=== PATIENT | female | born 1975 | race Caucasian/White ===

== ENCOUNTER 2020-08-03 07:43 | Outpatient (CLI) | payer OTHER, SELFPAY ==
--- NOTE | ~2020-08-03 | MR_ITS ---
EXAMINATION: MR brain/brain stem wo/w con EXAM DATE: 08/03/2020 08:47 INDICATION: Frontal headache, progressing. Symptoms one month. TECHNIQUE: Magnetic resonance imaging (MRI) of the brain/brain stem obtained without contrast. Sagit kelly T1, axial diffusion, gradient echo (T2*), T1, T2, FLAIR sequences obtained. Patient was then inj ected with 10 cc intravenous Multihance contrast. Axial and coronal postcontrast T1 weighted sequence s obtained. There is no prior study for comparison. FINDINGS: There are no areas of restricted diffusion to suggest acute infarction. There is no acute hemorrhage seen on the T2*, a hemosiderin sensitive sequence. No intraparenchymal brain mass. The ve ntricles are normal in size. There are no extra-axial collections. Flow voids are seen in the cereb ral arteries on the T2-weighted sequences consistent with their expected patency. The orbits are unr emarkable. Soft tissue is unremarkable. There are no areas of abnormal enhancement on the postcont rast images. IMPRESSION: Unremarkable brain MRI examination. Reviewed, dictated and finalized at location A. [employer]
== END 2020-08-03 07:44 | disposition home or self-care (01) ==
LOC: ANHIMG 07:51
PROVIDERS: PCP Internal Medicine; Visit Provider Nurse Practitioner
DX: R51.9 Headache, unspecified (principal)
CPT/HCPCS: 70553; A9577

== ENCOUNTER → 2021-01-04 09:53 | Outpatient (CLI) | payer OTHER, SELFPAY ==
[2021-01-05 14:27] LABS: SARS-CoV-2 RNA PCR Negative
== END ==
PROVIDERS: PCP Internal Medicine; Visit Provider Nurse Practitioner
DX: R51.9 Headache, unspecified (principal); Z20.822 Contact with and (suspected) exposure to COVID-19
CPT/HCPCS: C9803; U0003; U0005

== ENCOUNTER 2021-11-18 15:41 | Outpatient (CLI) | payer OTHER, SELFPAY ==
--- NOTE | ~2021-11-18 | MM_ITS ---
EXAMINATION: MM screening [facility] BI w nadine HISTORY: Screening mammogram, family history of breast cancer in her sister. TECHNIQUE: Craniocaudal and mediolateral oblique 3-D tomosynthesis images were obtained and synthetic 2-D images were generated. CAD analysis was submitted and interpreted. COMPARISON: 12/30/2015, 05/04/2012 BREAST PARENCHYMAL COMPOSITION: The breasts are extremely dense, which lowers the sensitivity of mamm ography. FINDINGS: There is no suspicious mass, calcification, or architectural distortion to suggest malignan cy in either breast. There has been no suspicious interval change. IMPRESSION: 1. No mammographic evidence of malignancy. 2. Recommend routine screening mammography in one year. BI-RADS Category 1: Negative Reviewed, dictated and finalized at location A.
== END 2021-11-18 15:42 | disposition home or self-care (01) ==
PROVIDERS: PCP Internal Medicine; Visit Provider Nurse Practitioner
DX: Z12.31 Encounter for screening mammogram for malignant neoplasm of breast (principal)
CPT/HCPCS: 77063; 77067

== ENCOUNTER 2023-06-05 09:47 | Outpatient (CLI) | payer OTHER, SELFPAY ==
--- NOTE | ~2023-06-05 | XR_ITS ---
XR chest 2V DATE: 06/05/2023 10:00 INDICATION: Contact and suspected exposure to an unspecified substance TECHNIQUE: PA and lateral views COMPARISON: None FINDINGS: Normal heart size. No hilar or mediastinal enlargement. Bilateral hyperinflation. No pulmon tere infiltrate or consolidation, pleural effusion or pulmonary vascular congestion or pneumothorax. IMPRESSION: Bilateral hyperinflation; no active cardiopulmonary disease Reviewed, dictated and finalized at location B.
== END 2023-06-05 09:48 | disposition home or self-care (01) ==
PROVIDERS: PCP Internal Medicine; Visit Provider Nurse Practitioner
DX: Z77.098 Contact with and (suspected) exposure to other hazardous, chiefly nonmedicinal, chemicals (principal); R91.8 Other nonspecific abnormal finding of lung field
CPT/HCPCS: 71046

== ENCOUNTER 2023-06-08 13:54 | Emergency (ER) | payer OTHER, SELFPAY ==
--- NOTE | ~2023-06-08 | XR_ITS ---
Clinical Indication: Lower extremity weakness PA and lateral views of the chest: Comparison: 06/05/2023 Findings: The lungs are clear, without evidence of focal consolidation or pleural effusion. Cardiome diastinal silhouette is within normal limits. Bones and soft tissues are unremarkable. Impression: Normal chest. Reviewed, dictated and finalized at [facility]. Impression: Normal chest.
[2023-06-08 14:01] VITALS: BP 178/77; PULSE 107; RESP 18; TEMP 36.3; O2SAT 100
--- NOTE | 2023-06-08 14:10 | ECG_ITS ---
Measurements Intervals Ethel Rate: 80 P: 51 WI: 128 QRS: 51 QRSD: 90 T: 21 QT: 355 QTc: 411 Interpretive Statements SINUS RHYTHM NO PREVIOUS ECG AVAILABLE FOR COMPARISON Electronically Signed On 06-09-2023 14:15:47 CDT by Jose E Romero M.D.
[2023-06-08 14:39] LABS: Basophils Absolute Auto 0.1 K/mm3 (0.0-0.1); Basophils Percent Auto 0.9 % (0.2-1.2); Eosinophils Absolute Auto 0.1 K/mm3 (0-0.3); Eosinophils Percent Auto 1.3 % (0-4.4); Hematocrit 40.2 % (37.0-47.0); Hemoglobin 13.6 g/dL (12.0-15.0); Immature Granulocyte Absolute 0.02 K/mm3 (0.00-0.031); Immature Granulocyte Percent A 0.3 % (0-0.5); Lymphocytes Absolute Auto 1.22 K/mm3 (0.9-3.2); Lymphocytes Percent Auto 19.1 % (18.3-44.2); Mean Corpuscular HGB Conc 33.8 g/dl (32-36); Mean Corpuscular Hemoglobin 31.8 pg (26-34); Mean Corpuscular Volume 93.9 fl (80-100); Mean Platelet Volume 10.8 fl (7.4-10.4); Monocytes Absolute Auto 0.4 K/mm3 (0.1-0.6); Monocytes Percent Auto 5.5 % (2.6-8.5); Neutrophils Absolute Auto 4.7 K/mm3 (1.3-6.7); Neutrophils Percent Auto 72.9 % (45.5-73.1); Platelet Count Result 249 k/mm3 (150-375); Red Blood Count 4.28 M/mm3 (4.2-5.4); Red Cell Distribution Width 12.4 % (11.5-14.5); White Blood Count 6.4 K/mm3 (4.5-10.0)
[2023-06-08 14:41] LABS: Alanine Aminotransferase 16 U/L (6-35); Albumin Level 4.5 g/dL (3.5-5.1); Alkaline Phosphatase 62 U/L (38-126); Anion Gap 9 mmol/L (8-16); Aspartate Amino Transferase 26 U/L (14-36); Bilirubin,Total 1.5 mg/dL (0.2-1.3); Blood Urea Nitrogen 9 mg/dL (7-17); Calcium 8.9 mg/dL (8.4-10.2); Carbon Dioxide 25 mmol/L (22-30); Chloride 103 mmol/L (98-107); Estimated CRCL calculation 65 ml/min; Estimated Glomerular Filt Rate > 60; Glucose 111 mg/dL (65-110); Potassium 3.9 mmol/L (3.4-5.0); Sodium 137 mmol/L (137-145)
[2023-06-08 15:07] LABS: Influenza A QL RT-PCR Negative (Negative); Influenza B QL RT-PCR Negative (Negative); SARS-CoV-2 RNA PCR Negative (Negative)
[2023-06-08 15:45] LABS: Appearance Urine Clear (Clear); Bilirubin Urine Negative (Negative); Blood Urine Negative (Negative); Color Urine Yellow (Yellow); Glucose Urine UA Negative (Negative); Ketones Urine Negative (Negative); Leukocyte Esterase Ur Negative LEU/UL (Negative); Nitrate Urine Negative (Negative); Protein Urine Negative (Negative); Specific Grav Ur 1.004 (1.001-1.035); Urobilinogen Urine 0.2 mg/dL (<2.0); pH Urine 6.5 (5.0-9.0)
[2023-06-08 15:58] VITALS: RESP 18
[2023-06-08 16:21] LABS: Add Urine Microscopic? NO
--- NOTE | 2023-06-08 19:06 | ED.GENADULT ---
HPI - General Adult General Chief complaint: Unspecified Stated complaint: pressure in neck left side Time Seen by Provider: 06/08/23 16:05 History of Present Illness HPI narrative: This is a 47F with past history of depression who presents to the emergency department complaining of left neck pressure, headache and elevated blood pressure. She states her symptoms began 4 days ago. She denies associated weakness/numbness or loss of consciousness. She denies recent trauma or manipulation of the neck. She notes she started Wellbutrin 4 days ago and her symptoms began the same day, several hours after her first dose of the medication. Related Data Home Medications Medication Instructions Recorded Confirmed esomeprazole magnesium 20 mg 20 mg PO DAILY 06/05/23 06/05/23 capsule,delayed release (Nexium 24HR) Allergies Allergy/AdvReac Type Severity Reaction Status Date / Time ondansetron Allergy Unknown OUTSIDE Verified 06/08/23 15:49 BODY EXPERIENCE-REACTION WITH IV ONLY Review of Systems Review of Systems: CONSTITUTIONAL: Denies fever, chills, or sweats. ENT: Left neck pressure Denies rhinorrhea, congestion, sore throat, or otalgia. CARDIOVASCULAR: Denies chest pain, palpitations, or edema. RESPIRATORY: Denies cough or dyspnea. GASTROINTESTINAL: Denies abdominal pain, nausea, vomiting, or diarrhea. GENITOURINARY: Denies dysuria or hematuria. SKIN: Denies rash or itching. MUSCULOSKELETAL: Denies back pain, joint pain, or myalgia. NEUROLOGIC: Headache Denies headache, numbness, dizziness, or weakness. PSYCHIATRIC: Denies anxiety or depression. [facility] Past Medical History Medical History Arthritis BMI 23.0-23.9, adult Epicondylitis HTN (hypertension) Kidney stone UTI (urinary tract infection) Surgical History Surgical History H/O section History of elbow surgery rt elbow 2019 Medial epicondylar debridement History of hand surgery lt hand, benign lesion removal History of laparoscopy Family History Family History Mother Hypertension Heart disease Epilepsy Family history of thyroid problem High cholesterol Leukemia Other Heart disease Grandparent Heart disease Father High cholesterol Sibling Breast cancer Social History Social History Smoking status: Former smoker Additional smoking assessment comments: Smoked 1/2 PPD x 6 years Alcohol intake: current Living arrangements: with family Gender identity (if verbalized by the patient): Female Exam Narrative: GENERAL: Well-developed, well-nourished, and in no acute distress. HEAD: Normocephalic, atraumatic. EYES: PERRLA and EOMI. ENT: Nares clear, no rhinorrhea or epistaxis. Mucous membranes moist. Oropharynx without tonsillar hypertrophy exudate or other lesions. Bilateral TMs pearly borrero nonbulging NECK: Supple. No adenopathy or masses. No carotid bruits or JVD. No midline tenderness to palpation, no step-off or crepitus CHEST: Clear to auscultation. No respiratory distress. No wheezes rales or rhonchi HEART: Regular rate and rhythm. No murmur heard. Normal peripheral pulses. EXTREMITIES: Normal range of motion. No edema. SKIN: Warm, dry, no rash. NEURO: Alert and oriented x3. CN II-XII intact, strength 5/5 in all extremities, sensation intact bilaterally, no noted ataxia, HINTS exam negative PSYCH: Normal mood and affect. Course Course Emergency Course: 19:08 - CBC demonstrates mildly elevated total bilirubin but is otherwise unremarkable. TSH within normal limits. CBC unremarkable. Chest x-ray unremarkable. EKG not concerning for ischemia or arrhythmia. I suspect the patient's symptoms are side are related to medication side effect from her Wellbutrin. The azeem
[2023-06-08 19:15] VITALS: BP 152/95; PULSE 81; RESP 16; O2SAT 100
== END 2023-06-08 19:15 | disposition home or self-care (01) ==
PROVIDERS: Emergency Provider Preventive Medicine Aerospace Medicine; PCP Internal Medicine
DX: R51.9 Headache, unspecified (principal); M54.2 Cervicalgia; T43.295A Adverse effect of other antidepressants, initial encounter; Z20.822 Contact with and (suspected) exposure to COVID-19; I10 Essential (primary) hypertension; M19.90 Unspecified osteoarthritis, unspecified site; Z87.440 Personal history of urinary (tract) infections; Z87.442 Personal history of urinary calculi; Z87.891 Personal history of nicotine dependence
CPT/HCPCS: 36415; 71046; 80053; 81003; 84443; 85025; 87636; 93005; 99283

== ENCOUNTER 2023-06-28 08:07 | Outpatient (CLI) | payer OTHER, SELFPAY ==
--- NOTE | 2023-06-28 13:07 | WPDPFTINT ---
PFT Procedure Performed PFT Procedure Performed Spirometry with Pre/Post Bronchodilator Plethysmography (Lung Vol) Diffusing Cap (DLCO) Flow Vol Loop PFT Interpretation Lung volumes were measured with the body plethysmography method. Lung volumes are unremarkable. Spirometry showed normal expiratory flow rates and a normal FEV1 to FVC ratio 72%. Following administration of a bronchodilator there was no significant increase in the expiratory flow rates. Lung diffusion capacity is within the normal range at 94% predicted. The flow-volume loop is unremarkable. Impression: Spirometry, lung volumes, and lung diffusion capacity all within the normal range.
== END 2023-06-28 08:08 | disposition home or self-care (01) ==
LOC: ANHPFT 08:08
PROVIDERS: PCP Internal Medicine; Visit Provider Nurse Practitioner
DX: R09.89 Other specified symptoms and signs involving the circulatory and respiratory systems (principal)
CPT/HCPCS: 94060; 94726; 94729

== ENCOUNTER 2024-04-19 09:08 | Outpatient (CLI) | payer OTHER, SELFPAY ==
--- NOTE | ~2024-04-19 | MM_ITS ---
EXAMINATION: MM screening [facility] BI w nadine HISTORY: Screening TECHNIQUE: Craniocaudal and mediolateral oblique 3-D tomosynthesis images were obtained and synthetic 2-D images were generated. CAD analysis was submitted and interpreted. COMPARISON: Comparison to multiple prior studies sequentially, with oldest reviewed study dated 12/29. BREAST PARENCHYMAL COMPOSITION: Dense: The breasts are heterogeneously dense, which may obscure small masses FINDINGS: There is no evidence of suspicious mass, calcification, or architectural distortion to sugg est malignancy in either breast. There has been no suspicious interval change. IMPRESSION: 1. No mammographic evidence of malignancy. 2. Recommend routine screening mammography in one year. BI-RADS Category 1: Negative Reviewed, dictated and finalized at location B.
== END 2024-04-19 09:09 | disposition home or self-care (01) ==
LOC: ANHIMG 09:10
PROVIDERS: PCP Nurse Practitioner; Visit Provider Nurse Practitioner
DX: Z12.31 Encounter for screening mammogram for malignant neoplasm of breast (principal)
CPT/HCPCS: 77063; 77067

== ENCOUNTER 2024-10-20 08:51 | Outpatient (CLI) | payer OTHER, SELFPAY ==
--- NOTE | ~2024-10-20 | MR_ITS ---
EXAMINATION: MR ankle RT wo con DATE: 10/20/2024 09:28 INDICATION: Right ankle pain TECHNIQUE: Magnetic resonance imaging (MRI) of the right ankle was performed without intravenous cont rast. Sequences included sagittal, coronal, and axial proton-density weighted fast spin echo without and with fat saturation. COMPARISON: None. FINDINGS: Medial ankle ligaments: Posterior deep deltoid ligament is normal. There is thickening and increased signal of the anterior d eep deltoid ligament with small osteophytes along the talar insertion. There is also thickening and i ncreased signal at the superficial deltoid ligament. No surrounding soft tissue edema in this likely represents scarring related to chronic sprain. The spring ligament complex is normal. Lateral ankle ligaments: The anterior and posterior inferior tibiofibular ligaments are normal. Thickening and increased signa l of the cephalad aspect of the anterior talofibular ligament as well as the calcaneal fibular ligame nt without surrounding edema consistent with scarring related to chronic sprains. The posterior talof ibular ligament is normal normal. Tendons: Achilles tendon is normal. The peroneus brevis tendon is normal. There is mild tendinopathy and longi tudinal split tearing of the peroneus longus tendon level of the tip of the lateral malleolus. The ti bialis anterior and extensor hallucis longus and extensor digitorum longus tendons are normal. The ti bialis posterior, flexor digitorum longus and flexor hallucis longus tendons are normal. Plantar fascia: Plantar aponeurosis is normal. Bones/other: Bone alignment is normal. Small low signal intensity bone island at the anterior tibial plafond and. Bone marrow signal is otherwise normal throughout with no reactive edema, fracture or pathologic marlo ow replacing process. Joint spaces are normal. No erosions. Fluid: Physiologic amount fluid in the joint spaces. IMPRESSION: 1. Scarring consistent with chronic sprains of the medial and lateral stabilizing ligaments of the an kle. 2. Mild tendinopathy and small longitudinal split tear of the peroneus longus tendon at level of the tip of the lateral malleolus. Reviewed, dictated and finalized at location A. ER DOOR ASSEMBLER IMPRESSION: 1. Scarring consistent with chronic sprains of the medial and lateral stabilizi ng ligaments of the ankle. 2. Mild tendinopathy and small longitudinal split tear of the peroneus longus t endon at level of the tip of the lateral malleolus.
--- OUTSIDE RECORDS SUMMARY | 2024-10-20 08:55 | XMS_ITS ---
Author Organization [facility] mary Address [address] [place] [address] Care Team Providers Care Programs Director Name Role Phone zzzzMigration, zzzzProvider Unavailable Unav ailable REASON FOR VISIT EMR-Royer Encounters Encounter Location Date Provider Diagnosis [facility] [address] [place] [address] 06/25/2023 zzzzProvider zzzzMigration Plan Of Treatment No Information Progress Notes * ELIJAH CarrieDOB: 7 (48 yo F)Acc No.[id number]:06/25/2023 Patient: oDt MARSH :1975 A ge:47 Y S ex:Female Address:[address] [place], [address] Subjective: * Chief Complaints: * E MR-Royer * Medical History: * Surgical History: * Hospitalization/Major Diagno stic Procedure: * Medications: Objective: * Vitals: * Physical Examination: Assessment: Plan: * Treatment: * Procedure Codes: * * Date:
--- OUTSIDE RECORDS SUMMARY | 2024-10-20 08:55 | XMS_ITS | Data Portability ---
Author Organization [facility] [place] Address [address] [place] [address] Care Team Providers Care Franchise Sales Manager Name Role Phone CATARINO CAMPOS Primary Care Provider [phone] Assessment Encounter Date Assessment Date Assessment LastModified by Organization Details LastModified Time 10/13/2021 10/13/2021 Annual gynecological exam performed. Patient will come back in a year unless there are new symptoms. Not available 10/13/2021 16:06:43 Plan of Treatment Reminders Order Date Submit Date Provider Last Modified By Organization Details Last Modified Time Details Appointments None record ed. Lab None record ed. Referral None record ed. Procedures None record ed. Surgeries None record ed. Imaging None record ed. Medication Orders None record ed. Patient TargetsNo targets recorded. Patient InstructionsNo instructions recorded. Reason for Referral None Reported. 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 17:49:35 Specializ ed medical examinati on Completed 201110/12/2021 Gynecolog ical Examinati on;Record ed Elsewhere : No Locati on: [facility] So urce: EHR Chron ic: N Practic e ID: [id number] Bill able Time: 03:15:00 PM Deb banegas [facility] 2 17:49:36 Breast lump [id number] Completed 201510/12/2021 Lump in breast;Re corded Elsewhere : No Locati on: [facility] So urce: EHR Chron ic: N Practic e ID: [id number] Bill able Time: 10:30:00 AM Deb Lewis [facility] 2 17:49:25 Screening for malignant neoplasm of cervix Completed 201110/12/2021 Screening for malignant neoplasms of the cervix;Re corded Elsewhere : No Locati on: [facility] So urce: EHR Chron ic: N Practic e ID: [id number] Bill able Time: 03:15:00 PM Deb Lewis [facility] [address] 17:49:[address] Concept Completed 201910/12/2021 Encntr for routine child health exam w/o abnormal findings; Recorded Elsewhere : No Locati on: [facility] So urce: EHR Chron ic: N Practic e ID: [id number] Bill able Time: 01:15:[address] [facility] [address] 17:49:[address] Concept Completed 201510/12/2021 Encntr for general adult medical exam w/o abnormal findings; Recorded Elsewhere : No Locati on: [facility] So urce: EHR Chron ic: N Practic e ID: [id number] Bill able Time: 10:30:00 AM Deb Lewis [facility] 2 17:49:31 Steriliza tion procedure Completed 201610/12/2021 Encounter for steriliza tion;Shukri rded Elsewhere : No Locati on: [facility] So urce: EHR Chron ic: N Practic e ID: [id number] Bill able Time: 10:00:00 AM Deb Lewis [facility] 2 17:49:38 Procedure on genitouri nary system Completed 201210/12/2021 Steriliza tion;Shukri rded Elsewhere : No Locati on: [facility] So urce: EHR Chron ic: N Practic e ID: [id number] Bill able Time: 01:45:00 PM [facility] 17:49:28 Education Completed 201610/12/2021 Encounter for oth general cnsl and advice on contracep tion;Prac maren ID: [id number] [facility] 17:49:27 Problem Notes None recorded. Procedures Surgical History Date Name Laterality Status Provider Name and Address Organization Details Recorded Time 12/30/19 16 Date of Last Mammogram completed [facility] 10/13/2021 16:13:32 09/04/19 07 section completed [facility] 10/13/2021 15:16:15 09/04/19 02 section completed [facility] 10/13/2021 15:16:12 09/04/19 01 procedure on hand completed [facility] 10/13/2021 15:16:53 09/04/18 97 Laparoscopy completed [facility] 10/13/2021 15:17:12 lateral epicondylitis test completed [facility] 10/13/2021 15:18:24 Laparoscopy completed [facility] 10/13/2021 16:07:42 Caesarean Section completed [facility] 10/13/2021 16:07:42 Imaging Results None recorded. Procedure Notes None recorded. Medical Equipment None Reported. Allergies Allergen ID Allergen Name Allergen Category Reaction Reaction Severity Criticality Documentation Date Start Date Code Code System Note Provider Name and Address Organization Details Recorded Time 71129 nitrofura ntoin medicatio n Not available Not available Not available 08/21/2020 7454 RxNorm Comme nt: Locat ion: Deloris Sierra r Cau sativ e Agent : Macro bid; Not Available [facility] 0 14:20:30 60466 Substance with sulfonami de structure and antibacte rial mechanism of action (substanc e) medicatio n Not available Not available Not available 08/21/2020 55988 8003 SNOMED Comme nt: Locat ion: Deloris freire [facility]; Not Available [facility] 0 14:20:31 Medications Name Sig Start Date Stop Date Status Note LastModified by Organization Details LastModified Time cyclobenzap rine 10 mg tablet TAKE 1 TABLET BY MOUTH EVERY NIGHT AT BEDTIME NEEDED FOR MUSCLE SPASM 10/13 completed Not Available Not Available Not Available sulfamethox azole 800 mg-trimetho prim 160 mg tablet TAKE 1 TABLET BY MOUTH EVERY 12 HOURS 10/12 completed Not Available Not Available Not Available ketorolac 10 mg tablet TAKE 1 TABLET BY MOUTH THREE TIMES DAILY FOR 5 DAYS NEEDED FOR PAIN 10/13 completed Not Available Not Available Not Available cefadroxil 500 mg capsule TAKE ONE CAPSULE BY MOUTH TWICE DAILY FOR 7 DAYS 10/12 completed Not Available Not Available Not Available meloxicam 7.5 mg tablet TAKE 1 TABLET BY MOUTH DAILY 10/13 completed Not Available Not Available Not Available lisinopril 10 mg tablet TAKE 1 TABLET BY MOUTH DAILY 10/13 completed Not Available Not Available Not Available butalbital- acetaminoph en-caffeine 50 mg-300 mg-40 mg capsule TAKE 1 CAPSULE BY MOUTH EVERY 4 TO 6 HOURS NEEDED FOR PAIN. DO NOT EXCEED 6 CAPSULES IN 24 HOURS active Not Available Not Available No t Available Vitals Date Recorded Body height Body mass index (BMI) Body weight Systolic blood pressure Diastolic blood pressure Provider Name and Address Organization Details Last Updated DateTime 10/13/2021 154.94 cm 23.6 kg/m2 66348.05 g 126 mm[Hg] 70 mm[Hg] Deb Lewis [facility] 2 16:07:11 Social History Question Answer Notes LastModified by Organizat ion Details LastModified Time Tobacco Smoking Status Former Smoker Deb Lewis [facility] 10/13/2021 16:07:38 Do You Have An Advance Directive? No Information not available 10/13/2021 What Is Your Level Of Alcohol Consumption? Occasional Information not available 10/13/2021 Are You Blind Or Do You Have Difficulty Seeing? No Information not available 10/13/2021 What Is Your Level Of Caffeine Consumption? Moderate Information not available 10/13/2021 How Much Tobacco Do You Chew? None Information not available 10/13/2021 In The 14 Days Before Symptom Onset, Have You Had Close Contact With A Laboratory-confir med COVID-19 While That Case Was Ill? No Information not available 10/13/2021 In The 14 Days Before Symptom Onset, Have You Had Close Contact With A Person Who Is Under Investigation For COVID-19 While That Person Was Ill? No Information not available 10/13/2021 Have You Been To An Area Known To Be High Risk For COVID-19? No Information not available 10/13/2021 Are You Deaf Or Do You Have Serious Difficulty Hearing? No Information not available 10/13/2021 What Type Of Diet Are You Following? REGULAR Information not available 10/13/2021 What Is The Highest Grade Or Level Of School You Have Completed Or The Highest Degree You Have Received? 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 No Information not available 10/13/2021 Do You Use Protection During Sex? No Information not available 10/13/2021 Do You Use Your Seat Belt Or Car Seat Routinely? Yes Information not available 10/13/2021 Do You Have Smoke And Carbon Monoxide Detectors In Your Home? Yes Information not available 10/13/2021 How Much Tobacco Do You Smoke? No Information not available 10/13/2021 Do You Feel Stressed (tense, Restless, Nervous, Or Anxious, Or Unable To Sleep At Night)? [id number] Information not available 10/13/2021 Do You Use Any Illicit Or Recreational Drugs? No Information not available 10/13/2021 Do You Use Sunscreen Routinely? No Information not available 10/13/2021 Have You Used IV Drugs? No Information not available 10/13/2021 Sex: Unknown Functional Status Question Answer Note LastModified by Organizat ion Details LastModified Time Do you have difficulty walking or climbing stairs? No Information not available 10/13/2021 Are you able to walk? YESWOREST Information not available 10/13/2021 Are you able to care for yourself? Yes Information not available 10/13/2021 Do you have difficulty dressing or bathing? No Information not available 10/13/2021 What is your exercise level? Moderate Information not available 10/13/2021 Mental Status None recorded. Family History Relationship Description Onset Age of this Age Resolved Age Notes LastModified by Organization Details LastModified Time Father Hypercholest erolemia HYPERL IPIDEM IA Not available 10/13/2021 16:07:19 Maternal Grandfather Cerebrovascu lar accident Not available 05/2022 16:07:19 Maternal Grandfather Heart disease Not available 2021 17:50:32 Maternal Grandfather Deep venous thrombosis Not available 10/13 16:07:19 Maternal Grandfather Hypertensive disorder Not available 2021 17:50:56 Maternal Grandmother Heart disease Not available 2021 16:07:19 Maternal Grandmother Genetic disease Not available 2021 16:07:19 Mother Heart disease Not available 2021 15:11:20 Mother Hypertensive disorder Not available 2021 15:12:33 Mother Hypercholest erolemia HYPERL IPIDEM IA Not available 10/13/2021 16:07:19 Mother Cyst of ovary Not available 2021 16:07:19 Mother Seizure disorder Not available 2021 16:07:19 Mother Irritable bowel syndrome Not available 2021 16:07:19 Mother Temporomandi bular joint disorder Not available 2021 16:07:19 Mother Arthritis Not available 10/13/2021 16:07:19 Sister Cyst of ovary Not available 2021 16:07:19 Sister Malignant tumor of breast Not available 2021 16:07:19 Paternal Grandfather Heart disease Not available 2021 16:07:19 Paternal Grandfather Carcinoma of prostate Not available 2021 16:11:22 Daughter Asthma Not available 0 10/13/2021 16:07:19 Notes:Paternal grandfather: Cancer Medical History Condition Response Hypertension Y Gynecological History Statement/Question Response Date of Last Mammogram 12/30/2015 Flow Light Date of LMP 10/07/2021 On BCP's at Conception? N N Was last menstrual period normal Y STIs/STDs N HPV Vaccine N Duration of Flow (days) 1 Current Control Method None Age at First Child 26 Are cycles usually normal Y Frequency of Cycle (Q days) 28 Sexually Active? Y Menses Monthly Y Age of first menstrual cycle 17 Date of Last Pap Smear Sexual Problems? N LMP Approximate N Obstetrics History GPAL:G 3 P 0 0 1 2 Type Value Living 2 Ectopics 1 Total 3 Past Encounters Encounter ID Performer Location Encounter Start Date Encounter Closed Date Diagnosis/Indication Diagnosis SNOMED-CT Code Diagnosis ICD10 Code Diagnosis [id number] [address] [address] 10/13/2021 15:42:17 10/13/2021 16:39:37 Gynecologic examination 31888866 Z01.419 Suggested Calcium with Vitamin D 1200-1500m g daily. Patient advised to get an annual flu shot in the fall and she could obtain at [facility] or [facility] take care clinic. Also to obtain TDap vaccinatio n if you have not had one in the last 10 years. Recommend yearly mammograms . Encouraged monthly self breast exams. Encourage safe sexual practices, to use condoms and limit partners if not already in a monogamous relationsh ip. Engage in daily exercise of low impact aerobic exercise 45-60 minutes 4-5 times weekly. Avoid tobacco and illicit drugs as well as using moderation with alcohol intake less than 1-2 8 oz beverages daily. This lifestyle behavior pattern will lead to less health conditions and longer life span. If BMI greater than 25 weight watchers or dietary consult advised. All questions have been answered. Patient appears to understand informatio n, but if you have any questions please call or respond to this email. Pap/hpv screen is q3-5yrs per asccp unless otherwise indicated. STD screen declinedGe netic screen discussedM ammo orderedCol on screen-nex t year age 46yoNo issues or concerns this year. Family his tory of malignant neoplasm of breast in first degree relative [id number] Z80.3 We discussed genetic cancer screening- which she is interested in but would like to research it a little more. The direct website link was given for Sudarshan virgen will talk more with her sister who was newly diagnosed this year with breast cancer.She will get more detailed informatio n from her sister & update us on this.Mammo orderedDoe s Monthly [facility] Health Concerns Section Related Observation LastModified by Organization Detai ls LastModified Time None Recorded Concern Status LastModified by Organization Details LastModified Time None Recorded Advance Directives Directive N: Payers Encounter Date Sequence Insurance Name Policy Number Policy Domínguze Covered Member ID Domínguez Member ID Guarantor Name 10/13/2021 1 [facility] (MEDICAID HMO) [id number] Dot Nava [id number] Dot Nava Notes Date Note Type Note Provider Name and Address Organization Details Recorded Time 10/13/2021 text/html Annual GYNReport ed bypatient.History: no gynecologic complaints Menstrual cycle:Normal menses Urinary symptoms:No hematuria; No incontinence Vulva:No genital lesion Vagina:Normal vaginal discharge Breast:No breast pain; No breast lump; No nipple discharge Current Contraception:Butler gamous relationship; control not practiced Sexual complaints:No sexual complaints; No pain during intercourse; Normal libido Menopausal Symptoms:No menopausal symptoms; Normal vaginal lubrication Psychological symptoms:No depression; No anxiety; No PMDD Preventive measures:Encourage self breast examination; Encourage regular exercise; Encourage no tobacco use; Encourage regular mammograms starting age 40; Followed with Q3 year pap smear and high risk HPV typing (q3-5yrs pap/hpvscreening) Dayan Nath, JEFFREY- [address], [place], [address], [facility] 10/13/2021 16:35:44 OBGyn Episode Ob Episode Information Episode Created Date Number of Fetuses Patient Bloodtype Patient rh Status Prepregnancy Weight lbs Domestic Partner Domestic Partner Phone Father Name Copper Miner Status 10/13/19 22 1 CLOSED Fetus Data First Name Last Name Admitted to NICU Weight (g) Sex Living Outcome Pediatric Complications Fetus ID Race Codes Race Delivery Type F [id number] Repeat Alfonzo Calculation Initial Alfonzo Date Initial Exam Date Initial Exam Provider Initial Ultrasound Date Last Menstrual Period Date Ultra Sound Weeks Gestation 0 Eighteen To Twenty Week Alfonzo Update Ultra Sound Date Fundal Height At Umbil Quickening Date Ultra Sound Latest Weeks Gestation Final Alfonzo Confirmed By Final Alfonzo Confirmed Date Final Alfonzo Date Ultra Sound Latest Days Gestation 0 0 Menstrual History Last Menstrual Date Menses Monthly On Bcp Conception Prior Menses Frequency Hcg Plus Date Menarche Onset Age Delivery Information Delivery Date Delivery Type Labor Anesthesia Weeks Gestation Incision Type Labor Labor Length Hrs Delivered By Post Complications Tubal Sterilization Discharge Date Comments 7 Discharge Information Feeding Method Contraceptive Method Maternal HG B and HCT Levels Ob Episode Information Episode Created Date Number of Fetuses Patient Bloodtype Patient rh Status Prepregnancy Weight lbs Domestic Partner Domestic Partner Phone Father Name Copper Miner Status 10/13/19 22 1 CLOSED Fetus Data First Name Last Name Admitted to NICU Weight (g) Sex Living Outcome Pediatric Complications Fetus ID Race Codes Race Delivery Type Ectopic [id number] Alfonzo Calculation Initial Alfonzo Date Initial Exam Date Initial Exam Provider Initial Ultrasound Date Last Menstrual Period Date Ultra Sound Weeks Gestation 0 Eighteen To Twenty Week Alfonzo Update Ultra Sound Date Fundal Height At Umbil Quickening Date Ultra Sound Latest Weeks Gestation Final Alfonzo Confirmed By Final Alfonzo Confirmed Date Final Alfonzo Date Ultra Sound Latest Days Gestation 0 0 Menstrual History Last Menstrual Date Menses Monthly On Bcp Conception Prior Menses Frequency Hcg Plus Date Menarche Onset Age Delivery Information Delivery Date Delivery Type Labor Anesthesia Weeks Gestation Incision Type Labor Labor Length Hrs Delivered By Post Complications Tubal Sterilization Discharge Date Comments 5 Discharge Information Feeding Method Contraceptive Method Maternal HG B and HCT Levels Ob Episode Information Episode Created Date Number of Fetuses Patient Bloodtype Patient rh Status Prepregnancy Weight lbs Domestic Partner Domestic Partner Phone Father Name Copper Miner Status 10/13/19 22 1 CLOSED Fetus Data First Name Last Name Admitted to NICU Weight (g) Sex Living Outcome Pediatric Complications Fetus ID Race Codes Race Delivery Type M [id number] Primary Alfonzo Calculation Initial Alfonzo Date Initial Exam Date Initial Exam Provider Initial Ultrasound Date Last Menstrual Period Date Ultra Sound Weeks Gestation 0 Eighteen To Twenty Week Alfonzo Update Ultra Sound Date Fundal Height At Umbil Quickening Date Ultra Sound Latest Weeks Gestation Final Alfonzo Confirmed By Final Alfonzo Confirmed Date Final Alfonzo Date Ultra Sound Latest Days Gestation 0 0 Menstrual History Last Menstrual Date Menses Monthly On Bcp Conception Prior Menses Frequency Hcg Plus Date Menarche Onset Age Delivery Information Delivery Date Delivery Type Labor Anesthesia Weeks Gestation Incision Type Labor Labor Length Hrs Delivered By Post Complications Tubal Sterilization Discharge Date Comments 2 Discharge Information Feeding Method Contraceptive Method Maternal HG B and HCT Levels
--- OUTSIDE RECORDS SUMMARY | 2024-10-20 08:55 | XMS_ITS ---
Author Organization [facility] mary Address [address] [place] [address] Care Team Providers Care Special Education Secretary Name Role Phone zzzzMigration, zzzzProvider Unavailable Unav ailable REASON FOR VISIT EMR-Royer Encounters Encounter Location Date Provider Diagnosis [facility] [address] [place] [address] 06/24/2023 zzzzProvider zzzzMigration Plan Of Treatment No Information Progress Notes * ELIJAH CarrieDOB: 7 (48 yo F)Acc No.[id number]:06/24/2023 Patient: Dot MARSH :1975 A ge:47 Y S ex:Female Address:[address] [place], [address] Subjective: * Chief Complaints: * E MR-Royer * Medical History: * Surgical History: * Hospitalization/Major Diagno stic Procedure: * Medications: Objective: * Vitals: * Physical Examination: Assessment: Plan: * Treatment: * Procedure Codes: * * Date:
--- OUTSIDE RECORDS SUMMARY | 2024-10-20 08:55 | XMS_ITS | Patient Health Record ---
Author Organization [facility] Address [address] [place] [address] Support Name Relationship Address Phone Dot Nava Guarantor Unknown [phone] Reason For Referral No Information Plan Of Treatment No Information Insurance Providers Payer Name Payer Address Payer Phone Subscriber Number Group Number Insured Name Patient Relationship to Insured Coverage Start Date Coverage End Date DO NOT USE [id number] Dot Nava Self - patient is the insured 2010
== END 2024-10-20 08:52 | disposition home or self-care (01) ==
PROVIDERS: PCP Nurse Practitioner; Visit Provider Orthopaedic Surgery
DX: S86.311A Strain of muscle(s) and tendon(s) of peroneal muscle group at lower leg level, right leg, initial encounter (principal); M76.71 Peroneal tendinitis, right leg; G89.29 Other chronic pain; X58.XXXA Exposure to other specified factors, initial encounter
CPT/HCPCS: 73721